=== PATIENT | male | born 1945 | race Hispanic/Latino ===

== ENCOUNTER 2019-02-19 08:24 | Inpatient (IN) | payer MEDICARE ==
[~2019-02-19] VITALS: Ht 172.7 cm; Wt 71.9 kg
[2019-02-19] MEDS ORDERED: SODIUM CHLORIDE 0.9% 1000ML 1,000 ML IV STA (08:32)
[2019-02-19] MEDS ORDERED: PANTOPRAZOLE 40 MG 10ML VIAL IV STA (08:32)
[2019-02-19] MEDS ORDERED: ONDANSETRON HCL INJ 2MG/ML 2ML 2 MG/ML VIAL IV STA (08:32)
[2019-02-19] MEDS ORDERED: MORPHINE SULFATE INJ 4 MG/ML INJ 1ML IV STA (08:39)
[2019-02-19 08:47] LABS: BASOPHILS % 0.3 % (0.0-1.0); EOSINOPHILS # (AUTO) 0.2 (0.0-0.4); EOSINOPHILS % 1.6 % (0.0-6.0); HEMATOCRIT 43.5 % (38.2-49.6); HEMOGLOBIN 14.6 g/dL (14.0-18.0); LYMPHOCYTES # (AUTO) 1.5 (1.0-3.2); LYMPHOCYTES % 15.5 % (18.0-39.1); MEAN CORPUSCULAR HEMOGLOBIN 30.5 pg (28-32); MEAN CORPUSCULAR HGB CONC 33.6 g/dL (31-35); MEAN CORPUSCULAR VOLUME 90.8 fL (81-99); MONOCYTES # (AUTO) 0.6 (0.2-0.8); MONOCYTES % 6.2 % (4.4-11.3); NEUTROPHILS # (AUTO) 7.3 (2.1-6.9); NEUTROPHILS % 76.1 % (38.7-80.0); PLATELET COUNT 227 x10e3/uL (140-360); RED BLOOD COUNT 4.79 x10e6/uL (4.3-5.7); RED CELL DISTRIBUTION WIDTH 12.9 % (11.7-14.4)
--- NOTE | 2019-02-19 09:01 | Diagnostic Imaging Report ---
Chest, portable AP view History: Abdominal pain Comparison: No comparisons available for review IMPRESSION: The heart is within normal limits of size. There is no focal consolidation, sizable pleural effusion, or pneumothorax. There are no acute osseous abnormalities. Signed by: Brenton Montiel MD on 02/19/2019 8:57 AM
[2019-02-19 09:05] LABS: BILIRUBIN,URINE NEGATIVE (NEGATIVE); CLARITY,URINE CLEAR (CLEAR); COLOR,URINE YELLOW (YELLOW); KETONES,URINE NEGATIVE (NEGATIVE); LEUKOCYTE ESTERASE ,URINE NEGATIVE (NEGATIVE); NITRITE,URINE NEGATIVE (NEGATIVE); PROTEIN,URINE DIPSTICK TRACE (NEGATIVE); URINE UROBILINOGEN 0.2 mg/dL (0.2 - 1)
[2019-02-19 09:10] LABS: INR 0.9; PROTHROMBIN TIME 12.6 seconds (11.9-14.5)
[2019-02-19 09:11] LABS: PARTIAL THROMBOPLASTIN TIME 33.1 seconds (23.8-35.5)
[2019-02-19 09:12] LABS: ALANINE AMINOTRANSFERASE 16 IU/L (0-55); ALBUMIN 3.7 g/dL (3.5-5.0); ALBUMIN/GLOBULIN RATIO 0.9 (0.8-2.0); ALKALINE PHOSPHATASE 137 IU/L (40-150); AMYLASE 74 U/L (25-125); ANION GAP 13.5 mmol/L (8-16); BLOOD UREA NITROGEN 13 mg/dL (7-26); BUN/CREATININE RATIO 18 (6-25); CALCIUM 10.2 mg/dL (8.4-10.2); CARBON DIOXIDE 31 mmol/L (22-29); CHLORIDE 99 mmol/L (98-107); CREATINE KINASE 57 IU/L (30-200); CREATININE, SERUM 0.73 mg/dL (0.72-1.25); EST GLOMERULAR FILTRATION RATE > 60 ML/MIN (60-); GLUCOSE 129 mg/dL (74-118); LIPASE 19 U/L (8-78); POTASSIUM 3.5 mmol/L (3.5-5.1); SODIUM 140 mmol/L (136-145)
[2019-02-19 10:07] LABS: BACTERIA,URINE MODERATE /HPF; EPITHELIAL CELLS,URINE MODERATE /LPF; MUCUS,URINE FEW (RARE)
--- NOTE | 2019-02-19 10:33 | Diagnostic Imaging Report ---
Right upper quadrant abdominal ultrasound, 02/19/2019. History: Right upper quadrant pain. Comparison: None available. Discussion: Transverse and longitudinal images of the right upper quadrant of the abdomen were obtained demonstrating a liver of normal size and echogenicity measuring 15 cm in length. There is no evidence of a focal hepatic mass. The portal vein is patent with hepatopetal flow. The biliary tree is within normal limits with the common bile duct measuring 5 mm in diameter. The gallbladder is hydropic with a longitudinal measurement of 11.8 cm. The gallbladder contains multiple narrowing gallstones. There is no gallbladder wall thickening or pericholecystic fluid. The right kidney is normal in size and echogenicity without evidence of hydronephrosis, stones, or mass and measures 12.2 cm in length. The risks is poorly visualized secondary to overlying bowel gas.. The abdominal aorta is poorly visualized secondary to overlying bowel gas.. There is no evidence of free fluid. IMPRESSION: Hydropic gallbladder containing multiple shadowing gallstones which measures 11.8 cm in longitudinal dimension. There is no gallbladder wall thickening or pericholecystic fluid. If there is high clinical concern for acute cholecystitis a HIDA scan may be performed. Signed by: Brenton Montiel MD on 02/19/2019 10:30 AM
--- NOTE | 2019-02-19 11:08 | Diagnostic Imaging Report ---
CT of the abdomen and pelvis History: Abdominal pain Comparison: Ultrasound of the right upper quadrant 02/19/2019. Technique: Multidetector CT scanning of the abdomen and pelvis was performed from the level of the lung bases to the inferior pubic ramus, with IV contrast DOSE REDUCTION: The examination was performed according to departmental dose-optimization program which includes automated exposure control, adjustment of the mA and/or kV according to patient size and/or use of iterative reconstruction technique. Discussion: The lung bases demonstrate dependent atelectasis. No focal hepatic lesions are identified. There is moderate right intrahepatic biliary ductal dilatation. The gallbladder is hydropic and measures approximately 4.1 cm in diameter. Multiple gallstones are identified. A small amount of pericholecystic fluid is present and there is surrounding inflammatory fat stranding concerning for acute cholecystitis. Spleen is within normal limits. Bilateral adrenal glands are unremarkable. The kidneys are normal in size and enhance symmetrically. Multiple renal cysts are present bilaterally. There is a 1.5 cm indeterminate lesion in the midpole of the left kidney. An indeterminate 1.2 cm in diameter lesion is seen in the lower pole of the left kidney. The stomach, small, and large bowel are nondistended. There is no evidence of obstruction. There is no bowel wall thickening. The appendix is normal in caliber. There is diffuse colonic diverticulosis without evidence of acute diverticulitis. The abdominal aorta is of normal course and caliber. The urinary bladder is nondistended. A trace amount of pelvic free fluid is present. There is no free intraperitoneal air. No acute osseous abnormalities are identified. IMPRESSION: 1. Distended gallbladder containing multiple stones with surrounding inflammatory changes concerning for acute cholecystitis. 2. Mild intrahepatic dilatation of the right biliary ducts. Recommend correlation with serum bilirubin levels to assess for the need for possible ERCP or MRCP. 3. Colonic diverticulosis without evidence of acute diverticulitis. 4. Indeterminate 1.5 cm right renal lesion and 1.2 cm left renal lesion. While these may be hyperdense proteinaceous or hemorrhagic cysts small neoplasms or not excluded. Recommend further evaluation with nonemergent renal mass protocol CT or MR. 5. Trace nonspecific pelvic free fluid. Signed by: Brenton Montiel MD on 02/19/2019 11:05 AM
[2019-02-19] MEDS ORDERED: HYDROMORPHONE 1MG/1ML INJ IV PRN (11:30)
[2019-02-19] MEDS ORDERED: SODIUM CHLORIDE 0.9% 1000ML 1,000 ML IV ONE (11:30)
[2019-02-19] MEDS ORDERED: ONDANSETRON HCL INJ 2MG/ML 2ML 2 MG/ML VIAL IV PRN (11:30)
[2019-02-19] MEDS: PIPER-TAZ 3.375 GM 50 ML IV SCH ×4 (11:40→23:00)
--- OUTSIDE RECORDS SUMMARY | 2019-02-19 11:43 | XMS REPORT ---
Author Author [facility] Address Unknown Phone Unavailable Care Team [facility]iders [facility] Name Role Phone Maddison GALVEZ Unavailable Unavailable Problems This patient has no known problems. Allergies, Adverse Reactions, Alerts This patient has no known allergies or adverse reactions. Medications This patient has no known medications. Results Test Description Test Time Test Comments Text Results Atomic Results Result Comments CT ABDOMEN/PELVIS W 2019-02-19 10:54:00 [place] [address] Patient Name: POOJA FLORENCE MR #: [id number] : 1945 Age/Sex: 73/M Req #: [id number] Adm Physician: Ordered by: LEONIDES GALVEZ MD Report #: [id number] Location: ER Room/Bed: Procedure: [id number] CT/CT ABDOMEN/PELVIS W Exam Date: 02/19/19 Exam Time: 1015 REPORT STATUS: Signed CT of the abdomen and pelvis History: Abdominal pain Comparison: Ultrasound of the right upper quadrant 02/19/2019. Technique: Multidetector CT scanning of the abdomen and pelvis was performed from the level of the lung bases to the inferior pubic ramus, with IV contrast DOSE REDUCTION: The examination was performed according to departmental dose- optimization program which includes automated exposure control, adjustment of the mA and/or kV according to patient size and/or use of iterative reconstruction technique. Discussion: The lung bases demonstrate dependent atelectasis. No focal hepatic lesions are identified. There is moderate right intrahepatic biliary ductal dilatation. The gallbladder is hydropic and measures approximately 4.1 cm in diameter. Multiple gallstones are identified. A small amount of pericholecystic fluid is present and there is surrounding inflammatory fat stranding concerning for acute cholecystitis. Spleen is within normal limits. Bilateral adrenal glands are unremarkable. The kidneys are normal in size and enhance symmetrically. Multiple renal cysts are present bilaterally. There is a 1.5 cm indeterminate lesion in the midpole of the left kidney. An indeterminate 1.2 cm in diameter lesion is seen in the lower pole of the left kidney. The stomach, small, and large bowel are nondistended. There is no evidence of obstruction. There is no bowel wall thickening. The appendix is normal in caliber. There is diffuse colonic diverticulosis without evidence of acute diverticulitis. The abdominal aorta is of normal course and caliber. The urinary bladder is nondistended. A trace amount of pelvic free fluid is present. There is no free intraperitoneal air. No acute osseous abnormalities are identified. IMPRESSION: 1. Distended gallbladder containing multiple stones with surrounding inflammatory changes concerning for acute cholecystitis. 2. Mild intrahepatic dilatation of the right biliary ducts. Recommend correlation with serum bilirubin levels to assess for the need for possible ERCP or MRCP. 3. Colonic diverticulosis without evidence of acute diverticulitis. 4. Indeterminate 1.5 cm right renal lesion and 1.2 cm left renal lesion. While these may be hyperdense proteinaceous or hemorrhagic cysts small neoplasms or not excluded. Recommend further evaluation with nonemergent renal mass protocol CT or MR. 5. Trace nonspecific pelvic free fluid. Signed by: Brenton Thomas MD on 02/19/2019 11:05 AM Dictated By: BRENTON THOMAS MD Transcribed By: ALYSSA on 02/19/190 COPY TO: LEONIDES GALVEZ MD GALLBLADDER 2019-02-19 10:24:00 [place] [address] Patient Name: POOJA FLORENCE MR #: [id number] : 1945 Age/Sex: 73/M Req #: [id number] [facility] Physician: Ordered by: LEONIDES GALVEZ MD Report #: [id number] Location: ER Room/Bed: Procedure: [id number] US/US GALLBLADDER Exam Date: 02/19/19 Exam Time: 0856 REPORT STATUS: Signed Right upper quadrant abdominal ultrasound, 02/19/2019. His tory: Right upper quadrant pain. Comparison: None available. Discussion: Transverse and longitudinal images of the right upper quadrant of the abdomen were obtained demonstrating a liver of normal size and echogenicity measuring 15 cm in length. There is no evidence of a focal hepatic mass. The portal vein is patent with hepatopetal flow. The biliary tree is within normal limits with the common bile duct measuring 5 mm in diameter. The gallbladder is hydropic with a longitudinal measurement of 11.8 cm. The gallbladder contains multiple narrowing gallstones. There is no gallbladder wall thickening or pericholecystic fluid. The right kidney is normal in size and echogenicity without evidence of hydronephrosis, stones, or mass and measures 12.2 cm in length. The risks is poorly visualized secondary to overlying bowel gas.. The abdominal aorta is poorly visualized secondary to overlying bowel gas.. There is no evidence of free fluid. IMPRESSION: Hydropic gallbladder containing multiple shadowing gallstones which measures 11.8 cm in longitudinal dimension. There is no gallbladder wall thickening or pericholecystic fluid. If there is high clinical concern for acute cholecystitis a HIDA scan may be performed. Signed by: Brenton Thomas MD on 02/19/2019 10:30 AM Dictated By: BRENTON THOMAS MD 1030 Transcribed By: ALYSSA on 02/19/19 1030 COPY TO: LEONIDES GALVEZ MD CHEST SINGLE (PORTABLE) 2019-02-19 08:56:00 [place] [address] Patient Name: POOJA FLORENCE MR #: [id number] : 1945 Age/Sex: 73/M Req #: [id number] Adm Physician: Ordered by: LEONIDES GALVEZ MD Report #: [id number] Location: ER Room/Bed: Procedure: [id number] DX/CHEST SINGLE (PORTABLE) Exam Date: Exam Time: REPORT STATUS: Signed Chest, portable AP view History: Abdominal pain Comparison: No comparisons available for review IMPRESSION: The heart is within normal limits of size. There is no focal consolidation, sizable pleural effusion, or pneumothorax. There are no acute osseous abnormalities. Signed by: Brenton Thomas MD on 02/19/2019 8:57 AM Dictated By: BRENTON THOMAS MD 6 Transcribed By: ALYSSA on 02/19/19856 COPY TO: LEONIDES GALVEZ MD
[2019-02-19] MEDS ORDERED: AMLODIPINE BESYL5 MG PO (11:53)
[2019-02-19] MEDS ORDERED: LOW DOSE ASPIRI81 MG PO (11:53)
[2019-02-19] MEDS ORDERED: ATORVASTATIN CA40 MG PO (11:53)
[2019-02-19] MEDS ORDERED: LISINOPRIL30 MG PO (11:53)
--- NOTE | 2019-02-19 13:22 | Diagnostic Imaging Report ---
MRCP (magnetic resonance cholangiopancreatography) HISTORY: Findings suspicious for acute cholecystitis on recent CT scan, with right hepatic lobe intrahepatic biliary dilation Comparison: CT abdomen and pelvis of same date Technique: Multiplanar and multisequence MRI images of the abdomen were obtained without contrast. Three-dimensional reconstructed images of the biliary tree are also reviewed. FINDINGS: The common bile duct appears normal in caliber. Mild prominence of the right intrahepatic ducts, without intraluminal defect. No hepatic mass is appreciated. No pancreatic ductal dilation. No intrinsic or extrinsic defect is identified within the biliary system. Numerous stones are visualized within the gallbladder. There is mild pericholecystic fluid. Mild perihepatic ascites. No mass is identified in the region of the ampulla or pancreatic head. Otherwise, unremarkable appearance of the liver, pancreas, and spleen. Multiple well-circumscribed uniformly T2 hyperintense lesions are seen within the left kidney, presumably multiple cysts. These measure up to 2.9 cm in size. A 2.1 cm indeterminant heterogeneously hyperintense T2 lesion is seen within the central right kidney. The visualized bowel loops appear normal in caliber. No free fluid or lymphadenopathy is seen within the abdomen. Impression: 1. Cholelithiasis, with findings suspicious for acute cholecystitis. 2. No evidence of biliary obstruction. Mild, nonspecific prominence of the right intrahepatic ducts. 3. Mild perihepatic ascites. 4. Indeterminant right renal lesion, for which further characterization with nonemergent renal mass protocol CT is advised to exclude neoplasm. Signed by: Seth Hanks MD on 02/19/2019 1:19 PM
--- NOTE | 2019-02-19 15:41 | NUR ---
consent for surgery signed and placed into chart.
[2019-02-19 17:01] LABS: CREATINE KINASE 45 IU/L (30-200)
[2019-02-19 17:15] VITALS: BP 167/89
[2019-02-19 17:32] VITALS: BP 167/89
[2019-02-19 19:12] VITALS: BP 167/89
[2019-02-19 20:00] VITALS: BP 147/81
--- NOTE | 2019-02-19 20:22 | Consultation ---
DATE OF CONSULTATION: 02/19/2019 REFERRING PHYSICIAN: Tyson White MD HISTORY OF PRESENT ILLNESS: The patient is a 73-year-old male who presents with complaints of right upper quadrant abdominal pain which radiates to his back. He says it started last night. He has not had similar pains in the past, but the pain has persisted, but was somewhat less. Evaluation in the emergency room revealed gallstones with distending gallbladder and findings suggestive of acute cholecystitis. MRCP was done, which did not reveal any choledocholithiasis. The patient has no symptoms of jaundice. PAST MEDICAL HISTORY: Significant for hypertension and hypercholesterolemia. MEDICATIONS: At home were amlodipine, atorvastatin, lisinopril, and aspirin. PREVIOUS SURGERIES: Repair of left inguinal hernia. ALLERGIES: HE HAS NO KNOWN ALLERGIES. FAMILY HISTORY: Noncontributory. SOCIAL HISTORY: The patient smokes cigarettes about a half pack per day. Does not drink alcohol. REVIEW OF SYSTEMS: As stated above. He has had no fever, no weight loss. PHYSICAL EXAMINATION: GENERAL: The patient is awake and alert, in no distress. VITAL SIGNS: Were normal. HEENT: Sclerae is not icteric. NECK: Supple with no masses. LUNGS: Equal breath sounds are clear bilaterally. CARDIAC: Regular rate and rhythm with no murmur. ABDOMEN: Tender in the right upper quadrant. There is no mass. There is no organomegaly. There were no signs of peritonitis. EXTREMITIES: No edema. NEUROLOGIC: Grossly intact. LABORATORY TESTS: White blood count 9.6, there is a slight left shift differential, hemoglobin and hematocrit are normal. Platelet count is normal. Chemistries reveal normal liver function tests, normal lipase. ASSESSMENT: A 73-year-old male with findings suggestive of acute cholecystitis with cholelithiasis. He will benefit from cholecystectomy, which I planned to schedule for tomorrow. Procedure was explained to the patient including risks, benefits and alternatives. He understands he has had the opportunity to ask questions. He is aware of the possible need for open surgery. Thank you for asking me to see Mr. Marino. MD BONI Kohler/DIONISIO /[id number]
[2019-02-20] VITALS (8 sets, daily range): BP systolic 112–137; BP diastolic 58–88
[2019-02-20] MEDS ORDERED: METOPROLOL TARTRATE INJ 1 MG/ML VIAL IV PRN (04:45)
--- NOTE | 2019-02-20 04:47 | NUR ---
H&P cc: abdominal pain HPI:73yoM, PCP , developed RUQ pain for 1 day. no N/V. PMH: HTN, HLD, cigarete use PSHx: hernia, foot Allergies; see emr Fh/SH; ; 1/2ppd cigs; med;s see MAR ROS: no f/c/s/N/V/D/TAYLOR/cp/sob/dizziness/skin rash/confusion/agitation v/s; revd PE tired apeparing aicteric ns1s2 mod bs soft ND; RUQ tender no e/ skin dry n. affect labs/meds revd A/P: Acute cholecystitis Cholelithiasis UTI Renal lesions Diverticulosis Current smoker/Nicotine dependence PLAN Sx pending Renal mass protocol Before d/c IV abx SCD/ppi Tyson White MD, PhD.
[2019-02-20] MEDS: PIPER-TAZ 3.375 GM 50 ML IV SCH ×4 (05:04→23:52)
[2019-02-20 06:00] LABS: BASOPHILS % 0.5 % (0.0-1.0); EOSINOPHILS # (AUTO) 0.3 (0.0-0.4); EOSINOPHILS % 3.1 % (0.0-6.0); HEMATOCRIT 37.9 % (38.2-49.6); HEMOGLOBIN 12.8 g/dL (14.0-18.0); LYMPHOCYTES # (AUTO) 1.6 (1.0-3.2); MEAN CORPUSCULAR HEMOGLOBIN 30.6 pg (28-32); MEAN CORPUSCULAR HGB CONC 33.8 g/dL (31-35); MEAN CORPUSCULAR VOLUME 90.7 fL (81-99); MONOCYTES # (AUTO) 0.7 (0.2-0.8); MONOCYTES % 7.9 % (4.4-11.3); NEUTROPHILS # (AUTO) 5.9 (2.1-6.9); NEUTROPHILS % 69.1 % (38.7-80.0); PLATELET COUNT 213 x10e3/uL (140-360); RED BLOOD COUNT 4.18 x10e6/uL (4.3-5.7)
[2019-02-20 06:19] LABS: ALANINE AMINOTRANSFERASE 22 IU/L (0-55); ALBUMIN 3.1 g/dL (3.5-5.0); ALKALINE PHOSPHATASE 114 IU/L (40-150); ANION GAP 12.6 mmol/L (8-16); BLOOD UREA NITROGEN 9 mg/dL (7-26); BUN/CREATININE RATIO 12 (6-25); CALCIUM 9.4 mg/dL (8.4-10.2); CARBON DIOXIDE 30 mmol/L (22-29); CHLORIDE 99 mmol/L (98-107); CREATININE, SERUM 0.74 mg/dL (0.72-1.25); EST GLOMERULAR FILTRATION RATE > 60 ML/MIN (60-); GLUCOSE 109 mg/dL (74-118); LIPASE 12 U/L (8-78); POTASSIUM 3.6 mmol/L (3.5-5.1); SODIUM 138 mmol/L (136-145)
--- NOTE | 2019-02-20 07:00 | NUR ---
bedside shift report received pt in stable condition, denies pain at this time, r ac 20g no ss of infiltration noted, no other co voiced call light in reach will continue to monitor
[2019-02-20 08:01] LABS: CREATINE KINASE 48 IU/L (30-200)
--- NOTE | 2019-02-20 08:15 | NUR ---
ASSESSMENT: Spiritual concern Referred by RN. Pt's requested pt to receive Worship communion. Intervention: Explained to pt & that pt is NPO today and that a eucharistic editor magazine can bring communion Saturday. Provided prayer from Worship tradition. Outcome: No need to follow at this time. TEJAL BOWDEN [employer] T[employer] Spiritual Care Department O: [phone]
[2019-02-20] MEDS: FAMOTIDINE 20 MG/2 ML VIAL IV SCH ×2 (09:00→17:08)
[2019-02-20 10:56] LABS: CREATINE KINASE MB < 1.00 ng/mL (0-4.3)
[2019-02-20] MEDS ORDERED: BUPIVACAINE HCL 0.5% INJ 30 ML VIAL INJ ONE (14:06)
[2019-02-20] MEDS ORDERED: MIDAZOLAM HCL 2 MG/2 ML VIAL ONE (15:05)
[2019-02-20] MEDS ORDERED: FENTANYL CITRATE/PF 100MCG/2 ML INJ ONE (15:05)
--- NOTE | 2019-02-20 15:30 | NUR ---
BACK TO RM AAOX3, 4 TROCHAR SITES TO ABDOMEN WITH BAND AIDS NOTED, DRY/ INTACT, PT DENIES PAIN AT THIS TIME, CALL LIGHT IN REACH WILL CONTINUE TO MONITOR
[2019-02-20] MEDS ORDERED: ACETAMINOPHEN 1000 MG/100 ML 100 ML IV ONE (16:10)
[2019-02-20] MEDS ORDERED: SUGAMMADEX SODIUM 200 MG/2 ML VIAL IV ONE (16:10)
[2019-02-20] MEDS ORDERED: HYDROCODONE/APAP 5MG-325MG TAB PO PRN (16:30)
[2019-02-20] MEDS ORDERED: ONDANSETRON HCL INJ 2MG/ML 2ML 2 MG/ML VIAL IV PRN (16:30)
[2019-02-20] MEDS: DEXTROSE 5%/0.45% SOD CHL 1,000 ML IV SCH (17:08)
--- NOTE | 2019-02-20 18:30 | NUR ---
NURSE CALLED TO PT CO TONGUE EDEMA, RIGHT SIDE TONGUE EDEMA NOTED, PT DENIES DIFFICULTY BREATHING OR SWALLOWING, DR MCNEAL NOTIFIED, ORDERS TO GIVE 25MGS OF BENADRYL, ORDERS CARRIED OUT.
[2019-02-20] MEDS ORDERED: DIPHENHYDRAMINE HCL INJ 50 MG/ML VIAL IV ONE (19:00)
--- NOTE | 2019-02-20 19:14 | NUR ---
WALKING ROUNDS PERFORMED, RECEIVED PT LAYING SEMI FOWLERS IN BED, AAOX3, RR EVEN AND NON-LABORED, ON ROOM AIR. NO S/SX OF DISTRESS NOTED. X4 TROCAR SITES TO ANTERIOR ABD. LEFT PT LAYING SEMI FOWLERS IN BED, BED IN LOW LOCKED POSITION, SIDE RAILS UPX2, CALL LIGHT AND PHONE WITHIN REACH.
--- NOTE | 2019-02-20 23:19 | Operative Report ---
DATE OF PROCEDURE: 02/20/2019 SURGEON: Hima Morocho MD POSTOPERATIVE DIAGNOSIS: Acute cholecystitis and cholelithiasis. POSTOPERATIVE DIAGNOSIS: Acute cholecystitis and cholelithiasis. PROCEDURES: Diagnostic laparoscopy and laparoscopic cholecystectomy. CANDLE MOLDER: None. ANESTHESIA: General. INDICATIONS AND FINDINGS: The patient is a 73-year-old male admitted with complaints of severe epigastric right upper quadrant abdominal pain. Workup revealed findings suggestive of acute cholecystitis with cholelithiasis. Surgery based on the gallbladder was distended and edematous, contained multiple small stones. Cystic duct was about 3 mm in diameter. Common bile duct was about 6 mm in diameter. Liver, stomach, and lower abdomen all appeared normal. TECHNIQUE: After adequate general endotracheal anesthesia, with the patient in supine position, the abdomen was prepped and draped in sterile fashion with ChloraPrep solution. Skin in the umbilicus was infiltrated with 0.5% Marcaine. Incision was made in the umbilicus. Abdominal wall was elevated and Veress needle was introduced. Pneumoperitoneum was then created. A 10 mm trocar and cannula was then passed through the umbilical wound. Laparoscopic camera was introduced. Initial laparoscopy revealed the gallbladder to be distended and edematous. Liver appeared normal. Stomach and lower abdomen appeared normal. A 10 mm trocar and cannula was placed in the epigastrium and two 5 mm trocars and cannulas were placed in the right upper quadrant, these were placed under direct vision. The gallbladder was tense, was decompressed, contained white bile. The fundus was then grasped retracted superiorly neck of the gallbladder was grasped, retracted laterally. Peritoneum over the neck of the gallbladder was incised, the gallbladder cystic duct junction was dissected free. The cystic artery was also dissected free. The cystic artery divided between hemoclips close to the gallbladder. Cystic duct was also divided between hemoclips with three clips being left on the common bile duct side. The gallbladder was dissected free from the liver using scissors and electrocautery. Once it was entirely free, it was placed into an Endopouch and brought through the epigastric cannula contained multiple small stones. Gallbladder bed was inspected for hemostasis, which was seen to be adequate, irrigated with saline. All fluid aspirated and inspected once again for hemostasis, which was seen to be adequate. Instruments and cannulas were removed. Pneumoperitoneum was evacuated. Wounds were then closed. Fascia in the umbilical and epigastric wound closed with 0 Vicryl. Skin to all wounds closed with catia. Sterile dressings applied to each wound. The patient tolerated the procedure well. Estimated blood loss was 20 mL. There were no complications. All counts were correct and the patient was taken to the recovery room in satisfactory condition. MD BONI Kohler/DIONISIO /[id number] cc: Tyson White MD
[2019-02-21] VITALS: BP 119/75
[2019-02-21 04:00] VITALS: BP 115/72
[2019-02-21] MEDS: DEXTROSE 5%/0.45% SOD CHL 1,000 ML IV SCH (05:10)
[2019-02-21] MEDS: PIPER-TAZ 3.375 GM 50 ML IV SCH ×2 (05:10→12:30)
--- NOTE | 2019-02-21 07:11 | NUR ---
IM-progress note O/N no events ROS: no f/c/s/N/V/D/TAYLOR/cp/sob/dizziness/skin rash/confusion/agitation v/s; revd PE tired apeparing aicteric ns1s2 mod bs soft ND; RUQ tender no e/ skin dry n. affect labs/meds revd A/P: Acute cholecystitis Cholelithiasis UTI Renal lesions Diverticulosis Current smoker/Nicotine dependence PLAN Sx pending Renal mass protocol Before d/c IV abx SCD/ppi 02/21 s/p Lap moshe; check H/H. Tyson White MD, PhD.
[2019-02-21 07:55] LABS: HEMATOCRIT 37.2 % (38.2-49.6); HEMOGLOBIN 12.4 g/dL (14.0-18.0)
[2019-02-21 08:04] VITALS: BP 132/73
[2019-02-21 08:42] VITALS: BP 132/73
[2019-02-21] MEDS: FAMOTIDINE 20 MG/2 ML VIAL IV SCH (08:50)
[2019-02-21 13:45] VITALS: BP 131/81
[2019-02-21] MEDS ORDERED: ONDANSETRON HCL INJ 2MG/ML 2ML 2 MG/ML VIAL ONE (14:27)
[2019-02-21] MEDS ORDERED: DEXAMETHASONE SOD PHOS INJ 4 MG/ML VIAL ONE (14:27)
[2019-02-21] MEDS ORDERED: SEVOFLURANE INHAL SOLN 250 ML PEN BTL ONE (14:27)
[2019-02-21] MEDS ORDERED: PROPOFOL IV EMULSION 10 MG/ML 20 ML VIAL ONE (14:27)
[2019-02-21] MEDS ORDERED: LIDOCAINE HCL 2% LOCAL INJ 5 ML SDV VIAL INJ ONE (14:27)
[2019-02-21] MEDS ORDERED: ROCURONIUM BROMIDE 10 MG/ML 5ML VIAL ONE (14:27)
[2019-02-21] MEDS ORDERED: TYLENOL WITH C1 EACH PO (15:25)
--- NOTE | 2019-02-22 08:58 | NUR ---
D/C summary Principal Dx: Acute cholecystitis Cholelithiasis UTI Renal lesions Secondary Dx: Diverticulosis Current smoker/Nicotine dependence PLAN Sx pending Renal mass protocol Before d/c IV abx SCD/ppi 02/21 s/p Lap moshe; check H/H. d/c home f/u pcp 1 week stable d/c>35mins Tyson White MD, PhD.
== END 2019-02-21 16:05 | disposition home or self-care (01) | DRG 418 ==
LOC: ER 08:24 → ERHOLD 11:41 → MED/SURG 17:15
PROVIDERS: ADMIT Internal Medicine; ATTEND Internal Medicine
PROC: 0FT44ZZ Resection of Gallbladder, Percutaneous Endoscopic Approach (ICD-10-PCS; principal; 2019-02-20 15:41)
DX: K80.00 Calculus of gallbladder with acute cholecystitis without obstruction (principal); N39.0 Urinary tract infection, site not specified; I10 Essential (primary) hypertension; E78.00 Pure hypercholesterolemia, unspecified; K57.90 Diverticulosis of intestine, part unspecified, without perforation or abscess without bleeding; N28.89 Other specified disorders of kidney and ureter; F17.200 Nicotine dependence, unspecified, uncomplicated
CPT/HCPCS: 36415; 71045; 74177; 74181; 76705; 80053; 81001; 82150; 82550; 82553; 83690; 84484; 85014; 85018; 85025; 85610; 85730; 87086; 88304; 93005; 96361; J1100; J1200; J2001; J2250; J2270; J2405; J2543; J3010; J7030

== ENCOUNTER → 2019-03-06 | Outpatient (CLI) | payer MEDICARE ==
[~2019-03-06] MED LIST: AMLODIPINE BESYL5 MG PO; ATORVASTATIN CA40 MG PO; IOPAMIDOL 370 MG/ML 200 ML INFUS..BTL INJ ONE; LISINOPRIL30 MG PO; LOW DOSE ASPIRI81 MG PO; SODIUM CHLORIDE 0.9% 50ML 50 ML ONE; TYLENOL WITH C1 EACH PO
[2019-03-06 16:07] LABS: BLOOD UREA NITROGEN 17 mg/dL (7-26); BUN/CREATININE RATIO 22 (6-25); CREATININE, SERUM 0.76 mg/dL (0.72-1.25); EST GLOMERULAR FILTRATION RATE > 60 ML/MIN (60-)
--- NOTE | 2019-03-06 17:35 | Diagnostic Imaging Report ---
EXAM: CT Abdomen and Pelvis WITHOUT and WITH intravenous contrast - renal mass protocol INDICATION: COMPARISON: None. TECHNIQUE: Abdomen and pelvis were scanned utilizing a multidetector helical scanner from the lung base to the pubic symphysis before and after administration of IV contrast. Coronal and sagittal reformations were obtained. Hematuria protocol was used. Scan was performed prior to contrast administration and during arterial and venous delay phases. IV CONTRAST: 100 mL of Isovue 370 ORAL CONTRAST: None COMPLICATIONS: None RADIATION DOSE: Total DLP: 1055.5 mGy*cm Dose modulation, iterative reconstruction, and/or weight based adjustment of the mA/kV was utilized to reduce the radiation dose to as low as reasonably achievable. FINDINGS: LOWER THORAX: Minimal bibasilar dependent subsegmental atelectasis. HEPATOBILIARY: No focal liver lesion. Unchanged right intrahepatic biliary ductal dilation. Status post cholecystectomy. SPLEEN: No splenomegaly. PANCREAS: No focal masses or ductal dilatation. ADRENALS: No adrenal nodules. KIDNEYS/URETERS: No hydronephrosis or renal calculi. 1.3 cm arterially enhancing lesion at the posterior right kidney lower pole and 1.3 cm arterially enhancing lesion at the lateral left kidney mid pole are concerning for renal malignancy. Multiple bilateral renal simple cysts appear unchanged. Delayed excretory phase images demonstrate opacification of the majority of the course of the right ureter and the proximal and distal left ureter. No evidence of filling defect to suggest urothelial mass lesion. PELVIC ORGANS/BLADDER: Unremarkable. PERITONEUM / RETROPERITONEUM: No free air or fluid. LYMPH NODES: No lymphadenopathy. VESSELS: Scattered atherosclerotic calcifications of the nonaneurysmal abdominal aorta and major branches. GI TRACT: Severe sigmoid and distal descending colon diverticulosis without CT evidence of diverticulitis. No abnormal bowel thickening. No bowel obstruction. Normal appendix. BONES AND SOFT TISSUES: No acute osseous injury. No suspicious lytic or blastic lesions. Mild degenerative changes of the visualized spine. IMPRESSION: 1.3 cm arterial enhancing lesions at the posterior right renal lower pole and at the lateral left renal midpole are concerning for renal malignancy. Severe diverticulosis without CT evidence of diverticulitis. Signed by: Hailee Hamm MD on 03/06/2019 5:31 PM
== END ==
LOC: CT 15:10
PROVIDERS: ATTEND Internal Medicine
DX: N28.89 Other specified disorders of kidney and ureter (principal)
CPT/HCPCS: 36415; 74178; 82565; 84520; Q9967

== ENCOUNTER → 2019-11-13 | Outpatient (CLI) | payer MEDICARE ==
[~2019-11-13] MED LIST changes: -IOPAMIDOL 370 MG/ML 200 ML INFUS..BTL INJ ONE; +METFORMIN HCL500 MG PO; -SODIUM CHLORIDE 0.9% 50ML 50 ML ONE
--- NOTE | 2019-11-13 08:54 | Diagnostic Imaging Report ---
EXAMINATION: CHEST 2 VIEWS INDICATION: ^[id number] ^[id number] ^NEOPLASM OF UNCERTAIN BEHAVIOR LT KIDNEY COMPARISON: None FINDINGS: PA and lateral views TUBES and LINES: None. LUNGS: Lungs are well inflated. Lungs are clear. Mild biapical lung scarring. There is no evidence of pneumonia or pulmonary edema. PLEURA: No pleural effusion or pneumothorax. HEART AND MEDIASTINUM: Normal heart size. Tortuous thoracic aorta. BONES AND SOFT TISSUES: No acute osseous lesion. Soft tissues are unremarkable. UPPER ABDOMEN: No free air under the diaphragm. IMPRESSION: No acute thoracic radiographic abnormality. Signed by: Juancarlos Blair MD on 11/13/2019 8:51 AM
--- NOTE | 2019-11-13 09:52 | Diagnostic Imaging Report ---
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 Cortical echogenicity is within normal limits. In this patient with history of partial right nephrectomy, there is a hyperechoic 3.0 x 3.3 x 2.2 cm lesion identified within the mid right kidney. There is no evidence for hydronephrosis or shadowing calculi. The left kidney measures 13.6 x 6.2 by x 4.7 cm with cortical thickness of 1.9 cm. Cortical echogenicity is within normal limits. There is a 2.6 x 2.7 x 2.1 cm simple cyst identified arising off the inferior pole of the left kidney. There is no evidence for solid renal mass, hydronephrosis, or shadowing calculi. The urinary bladder is unremarkable. Bilateral renal jets are noted. Prevoid volume is 149 cc. The prostate is grossly unremarkable. IMPRESSION: 3 cm hyperechoic lesion/mass identified within the mid right kidney. Recommend further evaluation with dedicated renal mass CT or MRI. Signed by: Dr. Johny Page MD on 11/13/2019 9:48 AM
== END ==
LOC: US 08:15
PROVIDERS: ATTEND Urology
DX: D41.02 Neoplasm of uncertain behavior of left kidney (principal)
CPT/HCPCS: 71046; 76770

== ENCOUNTER → 2019-12-07 | Outpatient (CLI) | payer MEDICARE ==
[~2019-12-07] MED LIST changes: +IOPAMIDOL 370 MG/ML 200 ML INFUS..BTL INJ ONE; +SODIUM CHLORIDE 0.9% 50ML 50 ML ONE
[2019-12-07 08:30] LABS: BLOOD UREA NITROGEN 14 mg/dL (7-26); BUN/CREATININE RATIO 19 (6-25); CREATININE, SERUM 0.75 mg/dL (0.72-1.25); EST GLOMERULAR FILTRATION RATE > 60 ML/MIN (60-)
--- NOTE | 2019-12-07 10:12 | Diagnostic Imaging Report ---
EXAM: CT Abdomen and Pelvis WITHOUT and WITH intravenous contrast - renal mass protocol INDICATION: Renal mass COMPARISON: Renal ultrasound 11/13/2019 TECHNIQUE: Abdomen and pelvis were scanned utilizing a multidetector helical scanner from the lung base to the pubic symphysis before and after administration of IV contrast. Coronal and sagittal reformations were obtained. Renal mass protocol was used. Scan was performed prior to contrast administration and during arterial and venous phases. IV CONTRAST: 100 mL of Isovue 370 ORAL CONTRAST: Water COMPLICATIONS: None RADIATION DOSE: Total DLP: 1242 mGy*cm Dose modulation, iterative reconstruction, and/or weight based adjustment of the mA/kV was utilized to reduce the radiation dose to as low as reasonably achievable. FINDINGS: LOWER THORAX: Normal. HEPATOBILIARY: Diffuse hepatic steatosis. No focal liver lesion. Focal segment 6 intrahepatic biliary ductal dilation. Status post cholecystectomy. SPLEEN: No splenomegaly. PANCREAS: No focal masses or ductal dilatation. ADRENALS: No adrenal nodules. KIDNEYS/URETERS: No hydronephrosis or renal calculi. Status post prior right partial nephrectomy. In the posterior midpole of the right kidney, there is an enhancing 2.8 x 2.5 x 2.5 cm mass, not well visualized on prior renal ultrasound. Additional 1.3 x 1.6 x 1.2 cm left midpole exophytic enhancing soft tissue mass. Left lower pole 3.4 cm simple renal cyst. Smaller simple renal cysts on the left measure up to 1.5 cm. Delayed excretory phase images demonstrate contrast opacification of the majority of both ureters without filling defects to suggest urothelial mass lesion. PELVIC ORGANS/BLADDER: Unremarkable bladder and prostate. PERITONEUM / RETROPERITONEUM: No free air or fluid. LYMPH NODES: No lymphadenopathy. VESSELS: Scattered atherosclerotic calcifications of the nonaneurysmal abdominal aorta and major branches. GI TRACT: Severe sigmoid and distal descending colon diverticulosis without CT evidence of diverticulitis. No abnormal bowel thickening. No bowel obstruction. Normal appendix. BONES AND SOFT TISSUES: No acute osseous injury. No suspicious lytic or blastic lesions. IMPRESSION: Enhancing 2.8 x 2.5 x 2.5 cm soft tissue mass at the midpole of the right kidney, not well-visualized on prior renal ultrasound, is concerning for malignancy. Status post prior right partial nephrectomy. 1.3 x 1.6 x 1.2 cm left midpole exophytic enhancing soft tissue renal mass, also concerning for malignancy. Severe diverticulosis without CT evidence of diverticulitis. Diffuse hepatic steatosis. Focal segment 6 intrahepatic biliary ductal dilation without intrahepatic mass lesion. Signed by: Hailee Hamm MD on 12/07/2019 10:09 AM
== END ==
LOC: CT 07:46
PROVIDERS: ATTEND Urology
DX: D41.02 Neoplasm of uncertain behavior of left kidney (principal)
CPT/HCPCS: 36415; 74178; 82565; 84520; Q9967

== ENCOUNTER → 2020-12-01 | Outpatient (CLI) | payer MEDICARE | LOC: CT 07:43 | PROVIDERS: ATTEND Urology | DX: D41.02 Neoplasm of uncertain behavior of left kidney (principal); D41.01 Neoplasm of uncertain behavior of right kidney | CPT/HCPCS: 74178; Q9967 ==

== ENCOUNTER → 2021-01-02 | Outpatient (CLI) | payer MEDICARE ==
[~2021-01-02] MED LIST changes: +AMLODIPINE BESYLATE 10 MG TAB ONE; +FENTANYL CITRATE/PF 100MCG/2 ML INJ ONE; +HYDRALAZINE HCL 20 MG/ML VIAL ONE; -IOPAMIDOL 370 MG/ML 200 ML INFUS..BTL INJ ONE; +LISINOPRIL 20 MG TAB ONE; +MIDAZOLAM HCL 2 MG/2 ML VIAL ONE; -SODIUM CHLORIDE 0.9% 50ML 50 ML ONE
[2021-01-02 09:24] LABS: INR 0.94
== END ==
LOC: CT 08:53
PROVIDERS: ATTEND Urology
DX: C64.1 Malignant neoplasm of right kidney, except renal pelvis (principal)
CPT/HCPCS: 36415; 50200; 76942; 85014; 85049; 85610; 85730; 88305; 88342; J0360; J2250; J3010; U0002